=== PATIENT | female | born 1980 | race Caucasian/White ===

== ENCOUNTER 2019-01-19 08:27 | Emergency (ER) | payer OTHER ==
[~2019-01-19] VITALS: Ht 172.7 cm; Wt 90.7 kg
[2019-01-19] MEDS ORDERED: METF500 PO (09:06)
[2019-01-19] MEDS ORDERED: Bactrim Ds Tab1 EACH PO (10:34)
[2019-01-19] MEDS ORDERED: Percocet 5-3251 EACH PO (10:34)
== END 2019-01-19 10:40 | disposition home or self-care (01) ==
LOC: ER 08:27
DX: L02.411 Cutaneous abscess of right axilla (principal); L03.111 Cellulitis of right axilla; E11.9 Type 2 diabetes mellitus without complications; F17.200 Nicotine dependence, unspecified, uncomplicated; Z79.899 Other long term (current) drug therapy; Z79.84 Long term (current) use of oral hypoglycemic drugs
CPT/HCPCS: 10060; 87070; 87075; 87077; 87147; 87186; 87205; 99283-25